=== PATIENT | female | born 2000 | race Caucasian/White ===

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

== ENCOUNTER 2021-11-29 20:46 | Emergency (ER) | payer MEDICAID ==
[~2021-11-29] VITALS: Ht 175.3 cm; Wt 100.0 kg
[~2021-11-29 20:46] MED LIST: ONDA8TAB13 PO; PANT-47 PO
[2021-11-29 20:55] VITALS: BP 117/77
[2021-11-29] MEDS ORDERED: PENICILLIN G BENZATHINE 2,400,000 UNIT/4 ML SYRINGE IM ONE (20:55)
[2021-11-29] MEDS ORDERED: dexamethasone 4mg tablet PO ONE (21:00)
[2021-11-29] MEDS ORDERED: diphenhydrAMINE 25 MG/10 ML UD oral solution PO ONE (21:10)
== END 2021-11-29 21:57 | disposition home or self-care (01) ==
LOC: ER 20:46
DX: J02.9 Acute pharyngitis, unspecified (principal); Z72.89 Other problems related to lifestyle; Z79.899 Other long term (current) drug therapy
CPT/HCPCS: 96372; 99283; J0561

== ENCOUNTER 2022-05-31 00:23 | Emergency (ER) | payer MEDICAID ==
[~2022-05-31] VITALS: Ht 177.8 cm; Wt 110.9 kg
[2022-05-31 03:00] LABS: BASOPHILS % (AUTO) 0.3 % (0-1); EOSINOPHILS # (AUTO) 0.1 X10'3 (0-0.9); EOSINOPHILS % (AUTO) 0.9 % (0-6); HEMOGLOBIN 12.6 g/dl (12.0-16.0); LYMPHOCYTES # (AUTO) 0.7 X10'3 (1.1-4.8); LYMPHOCYTES % (AUTO) 11.3 % (21-51); MEAN CORPUSCULAR HEMOGLOBIN 25.4 PG (27.0-31.0); MEAN CORPUSCULAR HGB CONC 33.2 g/dL (33.0-36.5); MEAN CORPUSCULAR VOLUME 76.5 FL (78-98); MEAN PLATELET VOLUME 7.9 FL (7.4-10.4); MONOCYTES # (AUTO) 0.4 X10'3 (0-0.9); MONOCYTES % (AUTO) 6.6 % (2-12); NEUTROPHILS # (AUTO) 4.7 X10'3 (1.8-7.7); NEUTROPHILS % (AUTO) 80.9 % (42-75); PLATELET COUNT 233 X10'3 (140-440); RED BLOOD COUNT 4.97 X10'6 (4.20-5.60); RED CELL DISTRIBUTION WIDTH 12.7 % (11.5-14.5); WHITE BLOOD COUNT 5.9 X10'3 (4.5-11.0)
[2022-05-31 03:02] LABS: ALANINE AMINOTRANSFERASE 21 U/L (12-78); ALBUMIN 3.8 G/DL (3.4-5.0); ALBUMIN/GLOBULIN RATIO 1.1 (1.1-1.5); ALKALINE PHOSPHATASE 86 IU/L (46-116); ANION GAP 13 (8-16); ASPARTATE AMINO TRANSFERASE 19 U/L (10-37); BILIRUBIN,TOTAL 0.4 MG/DL (0.1-1.0); BLOOD UREA NITROGEN 7 MG/DL (7-18); BUN/CREATININE RATIO 10.4 (6.6-38.0); CALCIUM 8.3 MG/DL (8.5-10.1); CHLORIDE 105 MMOL/L (99-107); CREATININE 0.67 MG/DL (0.40-0.90); GLUCOSE 94 MG/DL (70-104); MAGNESIUM 1.9 MG/DL (1.5-2.4); POTASSIUM 3.4 MMOL/L (3.5-5.1); SODIUM 144 MMOL/L (135-145); TOTAL CARBON DIOXIDE 25.8 MMOL/L (24-32); TOTAL PROTEIN 7.3 G/DL (6.4-8.2); eGFR > 90 ML/MIN
[2022-05-31 03:24] LABS: HEMOGLOBIN A1C 5.3 % (4.5-6.2)
[2022-05-31 04:00] LABS: CLARITY,URINE CLEAR (Clear); COLOR,URINE STRAW (Yellow); GLUCOSE, URINE NEGATIVE (Neg); KETONES,URINE NEGATIVE (Neg); LEUKOCYTE ESTERASE ,URINE NEGATIVE (Neg); NITRITES, URINE NEGATIVE (Neg); OCCULT BLOOD,URINE NEGATIVE (Neg); PROTEIN,URINE NEGATIVE (Neg); UA COLLECTION TYPE CLN CATCH MIDSTREAM; UROBILINOGEN,URINE 0.2 E.U/dL (0.2-1.0)
[2022-05-31 06:32] VITALS: BP 110/65
== END 2022-05-31 06:33 | disposition home or self-care (01) ==
LOC: ER 00:24
DX: R53.83 Other fatigue (principal)
CPT/HCPCS: 36415; 80053; 81003; 82948; 83036; 83735; 85025; 93005; 99285

== ENCOUNTER 2024-07-27 07:44 | Outpatient (CLI) | payer MEDICAID ==
[2024-07-27] VITALS (21 sets, daily range): BP systolic 106–128; BP diastolic 64–85; PULSE 65–106
[~2024-07-27 07:44] MED LIST changes: +ONDA-245 PO; -ONDA8TAB13 PO
== END 2024-07-27 23:59 | disposition home or self-care (01) ==
LOC: CARD DIAG 07:44
PROVIDERS: ATTEND Internal Medicine Interventional Cardiology
DX: R42 Dizziness and giddiness (principal); I95.1 Orthostatic hypotension
CPT/HCPCS: 93660